=== PATIENT | female | born 1995 | race Caucasian/White ===

== ENCOUNTER 2018-02-16 11:54 | Observation (INO) ==
[2018-02-16 12:40] LABS: Basophils % 0.1 %; Eosinophils # 0.1 K/mcL (0.0-0.6); Eosinophils % 1.2 %; Hematocrit 34.6 % (35.3-44.9); Hemoglobin 11.3 g/dL (11.5-15.4); Immature Granulocytes % 0.9 % (0-4); Lymphocytes # 1.5 K/mcL (0.6-4.6); Lymphocytes % 19.7 %; Mean Corpuscular HGB Conc 32.7 g/dL (31.6-35.5); Mean Corpuscular Hemoglobin 27.6 pg (28.0-33.3); Mean Corpuscular Volume 84.4 fL (83.0-100.0); Mean Platelet Volume 11.8 fL (9.4-12.4); Monocytes # 0.8 K/mcL (0.0-1.3); Monocytes % 9.8 %; Neutrophils # 5.2 K/mcL (1.6-8.9); Platelet Count 205 K/mcL (140-400); Red Cell Distribution Width 14.1 % (11.5-14.5); Segmented Neutrophils % 68.3 %
[2018-02-16 13:05] LABS: Alanine Aminotransferase 11 Units/L (7-52); Aspartate Amino Transferase 14 Units/L (13-39); BUN/Creatinine Ratio 12 (6-26); Blood Urea Nitrogen 5 mg/dL (6-20); Lactate Dehydrogenase 145 Units/L (140-271); Uric Acid 3.6 mg/dL (2.3-7.6); eGFR For Non-African Americans > 60 (> 60)
[2018-02-16 13:06] LABS: Amphetamine Screen,Urine Negative ng/mL (Cutoff=1000); Barbiturate Screen,Urine Negative ng/mL (Cutoff=200); Benzodiazepines Screen,Urine Negative ng/mL (Cutoff=200); Cannabinoid Screen,Urine Negative ng/mL (Cutoff = 50); Cocaine Screen,Urine Negative ng/mL (Cutoff= 300); Creatinine,Urine 37 mg/dL; Opiate Screen,Urine Negative ng/mL (Cutoff=300); Phencyclidine Screen,Urine Negative ng/mL (Cutoff=25); Protein/Creatinine Ratio,Urine 0.11 mg/mg (0.00-0.20)
--- NOTE | 2018-02-16 13:28 | OB/GYN Progress Note ---
Date of Encounter: 02/16/18 Time of Encounter: 13:23 - Assessment and Plan (1) 38 weeks gestation of Current Visit: Yes Status: Acute (2) Elevated blood pressure affecting in third trimester, antepartum Current Visit: Yes Status: Acute BP normal now. PIH labs normal. POC discussed with Dr. Torres. Discharge home with precautions. (3) False labor Current Visit: Yes Status: Acute Pt denies feeling contractions but contractions every 2-4 on toco. Repeat SVE unchanged. Discharge home with precautions. Subjective - Subjective Interval history: 23 year-old presenting at 38w3d from office for PIH evaluation due to BP 142/80 and 140/82. Pt denies ISAACS, vision changes, RUQ pain, leaking, bleeding, contractions, or any other complaints. Good FM. Antepartum ROS: movement normal, no loss of fluid, no vaginal bleeding, no contractions (Pt denies feeling any cramping) Objective - Vital Signs Vital Signs: Intake and Output 02/15/18 02/16/18 02/16/18 23:59 07:59 15:59 Other: Weight 79 kg Patient Weight 02/16/18 23:59 Weight 79 kg - Exam FHR: category 1 FHR comments: NST 135BPM, reactive NST Auscultation: bilateral: normal Abdomen: Present: soft, gravid Cervical dilation: 3 Cervix effacement: 50 station: -3 - Labs Labs: Abnormal lab results Hgb 11.3 g/dL (11.5-15.4) L 02/16/18 12:25 Hct 34.6 % (35.3-44.9) L 02/16/18 12:25 MCH 27.6 pg (28.0-33.3) L 02/16/18 12:25 BUN 5 mg/dL (6-20) L 02/16/18 12:25 Creatinine 0.43 mg/dL (0.60-1.20) L 02/16/18 12:25
== END 2018-02-16 13:25 | disposition home or self-care (01) ==
LOC: 1NENULAB
PROVIDERS: ADMIT Registered Nurse; ATTEND Registered Nurse

== ENCOUNTER 2018-02-26 02:12 | Inpatient (IN) ==
[2018-02-26 00:55] LABS: Basophils % 0.1 %; Eosinophils # 0.1 K/mcL (0.0-0.6); Eosinophils % 0.4 %; Hematocrit 35.7 % (35.3-44.9); Hemoglobin 11.7 g/dL (11.5-15.4); Immature Granulocytes % 0.3 % (0-4); Lymphocytes # 1.8 K/mcL (0.6-4.6); Lymphocytes % 15.7 %; Mean Corpuscular HGB Conc 32.8 g/dL (31.6-35.5); Mean Corpuscular Hemoglobin 27.3 pg (28.0-33.3); Mean Corpuscular Volume 83.2 fL (83.0-100.0); Monocytes # 1.1 K/mcL (0.0-1.3); Monocytes % 9.9 %; Neutrophils # 8.4 K/mcL (1.6-8.9); Platelet Count 194 K/mcL (140-400); Red Blood Count 4.29 M/mcL (3.82-4.97); Red Cell Distribution Width 14.3 % (11.5-14.5); Segmented Neutrophils % 73.6 %
--- NOTE | 2018-02-26 01:08 | OB/GYN Procedure Note ---
Delivery - Delivery Date: 02/26/18 Provider: Xiomara Ruiz (Yuli Denney CNM) Intrapartum events: precipitous labor- <3hr Delivery induction: none Delivery monitor: external FHT, external uterine Anesthesia: none Quantitated Blood Loss: 100 - (s) Infant A Delivery Date: 02/26/18 Delivery Time: 00:33 Presentation: vertex Position: GAYATRI Route of delivery: Gender: Female Viability: Viable Pounds: 8 Ounces: 15 Weight Gram: 4.055 kg at 1 minute: 8 at 5 mins: 9 Shoulder Dystocia: not encountered Specimens collected: cord blood Placenta: spontaneous Cord: 3 umbilical vessels - Repair Episiotomy: none Laceration Description: Superficial (Right labial and perineal) - Complications Delivery complications: none Delivery comments: The patient was complete and pushing with a spontaneous vaginal delivery in the GAYATRI position of a vigorous female infant weighing 8 lbs.15 oz. with Apgars of 8 at 1 minute and 9 at 5 minutes. Infant was placed on the maternal abdomen with care transferred to the nursery care team. The cord was clamped and cut after pulsations ceased. Cord blood obtained. The placenta was delivered spontaneous and intact. Superficial lateral right labial laceration was hemostatic and not repaired. Superficial perineal laceration was hemostatic and not repaired. Estimated blood loss 100 mL, complications none. Lesli Denney CNM was directly supervised by myself during the delivery - Disposition Mom disposition: stable in LDR [place] disposition: stable in LDR
[~2018-02-26 02:12] MED LIST: Famotidine 20 MG/2 ML VIAL IVP PRN; Naloxone 0.4 MG/ML INJ IVP PRN; Oxytocin 20 units/ LR 1000 mL 20 UNIT/1,000 ML BAG IVC ONE; Ringers Solution, Lactated 1,000 ML ONE
[2018-02-26] MEDS ORDERED: Acetaminophen 325 MG TABLET PO PRN (03:43)
[2018-02-26] MEDS ORDERED: Oxytocin 20 units/ LR 1000 mL 20 UNIT/1,000 ML BAG IVC SCH (03:43)
[2018-02-26] MEDS ORDERED: Rho Immune Globulin 1,500 UNIT SYRINGE IM PRN (03:43)
[2018-02-26] MEDS: Ibuprofen 600 MG TABLET PO SCH ×3 (04:35→21:20)
--- NOTE | 2018-02-26 07:05 | OB/GYN History & Physical ---
Date of Encounter: 02/26/18 Time of Encounter: 00:30 Assessment and Plan (1) 39 weeks gestation of Current visit: Yes Status: Acute Admit for spontaneous labor. Epidural for pain management. Patient may have when she desires. Expectant management Anticipate (2) Group B streptococcal infection during Current visit: Yes Status: Acute GBS prophylaxis as soon as possible. To continue every 4 hours until delivery. (3) NST (non-stress test) reactive Current visit: Yes Status: Acute FHR 150 bpm, moderate variability, +15x15 accels, no decels. Contractions q 2 minutes. History of Present Illness Chief complaint: Labor at 39.6 weeks HPI: Ms. Bernard is a 23 year old female at 39 weeks and 6 days who arrives with complaints of contractions since 10:15 this evening. She denies fluid leakage and vaginal bleeding and reports good movement. Patient was scheduled for induction in the a.m. for Dr. Reis. Upon nurse exam she is 4 cm with a bulging bag of water in in a moderate amount of pain. She is planning an epidural for pain management. Blood type O positive GBS is positive HBsAg is negative Varicella immune Rubella immune T pall negative HIV-negative Past Med Surg Social Fam HX - Past Medical History Medical history: no medical history Psychiatric history: no psych history - Past Surgical History Surgical History: non-contributory Additional surgical history: right knee surgery - Social History Smoking Status: Former smoker Smokeless Tobacco Status: No Alcohol use: none Drug use: none - Family History Mother Family Member Ethnicity: Non- Living Status: Still Living Hx Family Cardiac Disorders: Yes (HTN) Hx Family Respiratory Disorders: No Hx Family Cancer: No Hx Family GI Disorders: No Hx Family Genitourinary Disorders: No Hx Family Endocrine Disorder: No Hx Family Musculoskeletal Disorders: No Hx Family Neuromuscular Disorders: No Hx Family Neurologic Disorders: No Hx Family HEENT Disorders: No Hx Family Autoimmune Disorders: No Hx Family Reproductive Disorders: No Hx Family Psychosocial Disorders: No Hx Family Medical Disorders: No Obstetrical History - Pregnancies : 2 Para: 1 Term: 0 : 0 Ab's: 0 Livin Medications and Allergies Famotidine [Pepcid] 20 mg PO BID 02/16/18 [History] Ferrous Sulfate [Iron] 325 mg PO DAILY 02/16/18 [History] Pnv,Calcium 72/Iron/Folic Acid [ Plus Tablet] 1 each PO DAILY 02/16/18 [History] Allergy/AdvReac Type Severity Reaction Status Date / Time No Known Allergies Allergy Verified 02/16/18 12:19 Exam - Vital Signs Vital signs: Initial Vital Signs Temp Pulse Resp BP 98.9 F 80 18 125/80 02/26/18 03:15 02/26/18 03:15 02/26/18 03:15 02/26/18 03:15 - Constitutional Constitutional: well developed, well nourished, mild distress - Neck Neck exam: full ROM - Lungs Respiratory exam: CTAB - Cardiovascular Cardiovascular exam: RRR, +S1, +S2 - Breasts Breast: bilateral: normal - Abdomen Abdomen: Present: bowel sounds normal, gravid, non tender - Extremities Extremities exam: full ROM, normal capillary refill, normal inspection - Vulva Vulva: bilateral: normal - Vagina Vagina: Present: normal moisture - Cervix Dilation: 4 Effacement: 100 (per RN) Station: +1 - Uterus Uterus exam: Present: normal size Results Result Diagrams: 02/26/18 00:30 Abnormal lab results WBC 11.4 K/mcL (4.3-11.1) H 02/26/18 00:30 MCH 27.3 pg (28.0-33.3) L 02/26/18 00:30 All other labs normal. - VTE Reasons for not Prescribing Prophylaxis: Treatment not Indicated - Low risk for VTE
[2018-02-26] MEDS: Prenatal Vit/FA 1 EACH TABLET PO SCH (10:03)
[2018-02-27 08:34] VITALS: BP 109/68
[2018-02-27] MEDS: Ibuprofen 600 MG TABLET PO SCH (09:14)
[2018-02-27] MEDS: Prenatal Vit/FA 1 EACH TABLET PO SCH (09:14)
--- NOTE | 2018-02-27 09:37 | Discharge Summary ---
Date of Encounter: 02/27/18 Time of Encounter: 09:35 - Discharge Diagnosis (1) Status post vaginal delivery Priority: Primary Status: Acute Comments: Pt meeting PP milestones. is latching and well, working with . Rx for Breastpump given. Discussed control options and safe spacing. Pt plans to make decision by her PP visit. Anticipate discharge today. - Discharge Medications Prescriptions: Ibuprofen [Motrin] 600 mg PO Q6HR #30 tablet Breast Pump [BREAST PUMP] 1 each .ROUTE AD #1 each Docusate [Colace] 100 mg PO BID #30 capsule Home Medications: Pnv,Calcium 72/Iron/Folic Acid [ Plus Tablet] 1 each PO DAILY 02/16/18 [History] Breast Pump [BREAST PUMP] 1 each .ROUTE AD #1 each 02/27/18 [Rx] Docusate [Colace] 100 mg PO BID #30 capsule 02/27/18 [Rx] Ibuprofen [Motrin] 600 mg PO Q6HR #30 tablet 02/27/18 [Rx] Allergies/Adverse Reactions: Allergy/AdvReac Type Severity Reaction Status Date / Time No Known Allergies Allergy Verified 02/16/18 12:19 Data Procedures and tests throughout hospitalization: Laboratory Tests 02/26/18 02/26/18 00:30 01:40 WBC 11.4 H RBC 4.29 Hgb 11.7 Hct 35.7 MCV 83.2 MCH 27.3 L MCHC 32.8 RDW 14.3 Plt Count 194 MPV 12.0 Immature Gran % 0.3 Seg Neutrophils % 73.6 Lymphocytes % 15.7 Monocytes % 9.9 Eosinophils % 0.4 Basophils % 0.1 Neutrophils # 8.4 Lymphocytes # 1.8 Monocytes # 1.1 Eosinophils # 0.1 Basophils # 0.0 Hep Bs Antigen Nonreactive Date of admission: 02/26/18 02:12 Primary care physician: Napoleon Montoya MD Consults: 02/26/18 03:43 Consult to Integrated Logistics Programs Director [CONS] Routine Comment: Vaginal delivery, consult needed Discharging clinician: Mary De Anda Anticipated date of discharge: 02/27/18 - Patient Status Disposition: Home, Self-Care Condition: Good Functional capacity at discharge: independent ambulation Overall status at discharge: patient is progressing back to baseline - Discharge Instructions Follow Up With: Napoleon Montoya MD [Primary Care Provider] - Ramona Reis DO [Partnered Physician] - - Diet and Activity Activity: increase activity as tolerated Diet: advance to your usual diet Hospital Course Reason for admission: active labor Delivery: Episiotomy: none Laceration: other (Superficial (Right labial and perineal)) Other procedures: none complications: none Discharge diagnosis: IUP at term delivered baby: female Hospital course: - Delivery Date: 02/26/18 Provider: Xiomara Ruiz [place], CNM) Intrapartum events: precipitous labor- <3hr Delivery induction: none Delivery monitor: external FHT, external uterine Anesthesia: none Quantitated Blood Loss: 100 - Infant (s) A Delivery Date: 02/26/18 Infant Delivery Time: 00:33 Presentation: vertex Position: GAYATRI Route of delivery: Gender: Female Viability: Viable Pounds: 8 Ounces: 15 Weight Gram: 4.055 kg at 1 minute: 8 at 5 mins: 9 Shoulder Dystocia: not encountered Specimens collected: cord blood Placenta: spontaneous Cord: 3 umbilical vessels - Repair Episiotomy: none Laceration Description: Superficial (Right labial and perineal) - Complications Delivery complications: none Delivery comments: The patient was complete and pushing with a spontaneous vaginal delivery in the GAYATRI position of a vigorous female weighing 8 lbs.15 oz. with Apgars of 8 at 1 minute and 9 at 5 minutes. was placed on the maternal abdomen with care transferred to the nursery care team. The cord was clamped and cut after pulsations ceased. Cord blood obtained. The placenta was delivered spontaneous and intact. Superficial lateral right labial laceration was hemostatic and not repaired. Superficial perineal laceration was hemostatic and not repaired. Estimated blood loss 100 mL, complications none. Lesli Denney CNM was directly supervised by myself during the delivery - Disposition Mom disposition: stable in LDR [place] disposition: stable in LDR Time Attestation: Total time spent providing and/or coordinating discharge services: Exam - Constitutional Vitals: Temp Pulse Resp BP Pulse Ox 97.9 F 56 16 109/68 98 02/27/18 08:33 02/27/18 08:33 02/27/18 09:19 02/27/18 08:33 02/26/18 19:30 General appearance IM: A&O X 3, pleasant, no acute distress - Respiratory Respiratory exam: Present: CTAB - Cardiovascular Cardiovascular exam IM: Present: RRR, +S1, +S2 - GI/Abdominal GI/Abdominal exam IM: normal bowel sounds - Uterus Position: 1 Finger Below Umbilicus - Extremities Exam Extremities exam IM: Present: normal capillary refill, normal inspection, pedal edema (1+). Absent: calf tenderness - Neurological Exam Neurological exam: alert, oriented X3
== END 2018-02-27 10:59 | disposition home or self-care (01) | DRG 806 ==
LOC: 1NENULAB → 1NENUOBS 03:32
PROVIDERS: ADMIT Registered Nurse; ATTEND Registered Nurse